=== PATIENT | female | born 1960 | race Caucasian/White ===

== ENCOUNTER → 2018-02-26 | Outpatient (CLI) | payer OTHER ==
[~2018-02-26] MED LIST: COLESTIPOL HCL1 G1
== END ==
LOC: M.RAD 13:28
DX: Z12.31 Encounter for screening mammogram for malignant neoplasm of breast (principal)

== ENCOUNTER → 2020-08-23 | Outpatient (CLI) | payer OTHER ==
[~2020-08-23] MED LIST changes: +HYZAAR 100-12.1 EACH PO; +IBUPROFEN 400400 M2 PO; +NORCO 5-325 TA1 EACH PO; +PERCOCET PO; +UNICOMPLEX M TA1 TA1 PO; +VITAMIN B-12500 MCG PO; +VITAMIN D2000 UNIT PO; +XARELTO10 MG PO
== END ==
LOC: M.LAB 05:23
PROVIDERS: ATTEND Anesthesiology
DX: E87.6 Hypokalemia (principal)

== ENCOUNTER → 2021-04-03 | Outpatient (CLI) | payer OTHER ==
--- NOTE | 2021-04-03 15:37 | EXE ---
[place] [address] STRESS ECHOCARDIOGRAM Name: AMINA CONNORS Room: [facility]#: [id number] Admission: 04/03/21 Attend Phys: Brinda Shine, Discharge: Date of : 58 Date of Service: 04/03/21 1537 Report #: [id number] THIS REPORT FOR: cc: Brinda Shine,Giles Molina MD [facility] ~ APPROVED REPORT Study performed: 04/03/2021 13:08:38 Exam: Dobutamine Stress Echo Indication: Dyspnea Patient Location: Out-Patient Stress Nurse: Patricia Breen RN Supervising Physician: Giles Oliveira MD Ht: 5 ft 8 in HR: 94 bpm BP: 133/82 mmHg Medical History Cardiac Risk Factors: Age, , Hyperlipidemia, HTN, Tobacco History (Former) Procedure The patient underwent a Pharmacological Stress Test using Dobutamine. Blood pressure, heart rate, and EKG were monitored. An Echocardiogram was performed by mobile battery technician in four stages in quad fashion. At peak stress, four selected images were obtained and placed side by side with resting images for comparison. Stress Test Details Stress Test: Pharmacological Stress Test using Dobutamine. Reason for pharmacologic stress test: physical limitation. HR Resting HR: 94 bpm Max Heart Rate (APMHR): 159 bpm Max HR Achieved: 135 bpm Target HR (85% APMHR): 135 bpm % of APMHR: 84 Recovery HR: 100 bpm HR response to stress: Normal HR response to stress BP Resting BP: 133/82 mmHg Max BP: 148/[place] [address] STRESS ECHOCARDIOGRAM Name: AMINA CONNORS Room: [facility]#: [id number] Admission: 04/03/21 Attend Phys: Brinda Shine, Discharge: Date of : 58 Date of Service: 04/03/21 1537 Report #: [id number] Recovery BP: 127/91 mmHg BP response to stress: Normal blood pressure response to stress. ECG Resting ECG: Sinus rhythm minor nonspecific ST-T alterations Stress ECG: No ischemic ST-T changes noted Arrhythmia: Rare isolated PVCs Recovery ECG: No ischemic ST-T changes noted Recovery Arrhythmia: No arrhythmias noted Clinical Reason for Termination: Completed protocol Pre-Stress Echo The resting Echocardiogram showed normal left ventricular contractility with an estimated Ejection Fraction of about 55-60%. Normal wall motion in all segments on baseline images. Post-Stress Echo The stress Echocardiogram showed normal left ventricular contractility with an estimated Ejection Fraction of about >70%. Normal augmentation of wall motion in all segments on post stress images. Conclusion Clinical Response: Non-ischemic Stress ECG Response: Non-ischemic Stress Echo Images: Non-ischemic Other Information Study Quality: Good <ELECTRONICALLY SIGNED> By: Giles Oliveira MD, FACC 04/03/21 1537 [id number] Giles Oliveira MD, FACC /INF
== END | disposition home or self-care (01) ==
LOC: M.CRD 13:00
PROVIDERS: ATTEND Nurse Practitioner Primary Care
DX: R06.00 Dyspnea, unspecified (principal); Z79.899 Other long term (current) drug therapy

== ENCOUNTER → 2021-04-10 | Outpatient (CLI) | payer OTHER | LOC: M.LAB 09:27 | PROVIDERS: ATTEND Orthopaedic Surgery | DX: Z01.812 Encounter for preprocedural laboratory examination (principal); Z20.822 Contact with and (suspected) exposure to COVID-19 ==

== ENCOUNTER → 2021-04-11 | Outpatient (CLI) | payer OTHER | LOC: M.LAB 06:03 | PROVIDERS: ATTEND Anesthesiology | DX: E87.6 Hypokalemia (principal) ==